=== PATIENT | male | born 1955 | race Caucasian/White ===

== ENCOUNTER 2017-03-10 14:37 | Emergency (ER) | payer MEDICARE ==
[2017-03-10 14:54] VITALS: RESP 18; TEMP 99.1
[2017-03-10] MEDS ORDERED: HYDROcodone/APAP 5-325MG 1 EACH TAB PO STA (14:55)
[2017-03-10] MEDS ORDERED: KETOROLAC 60 MG/2 ML VIAL IM STA (14:55)
--- NOTE | 2017-03-10 15:05 | ED ---
Lower Extremity Injury HPI - General Chief Complaint: Extremity Injury, Lower Stated Complaint: Knee/Ankle Pain Time Seen by Provider: 03/10/17 14:43 Source: patient, RN notes reviewed Mode of arrival: wheelchair Limitations: no limitations - History of Present Illness Initial Comments: patient is a 61-year-old male presents to the emergency room for evaluation of right ankle and knee pain. Patient states that about a week ago he twisted his right ankle. Patient states that he did not seek medical care afterwards. Patient states that he wrapped his right ankle and Wilfrido wrap and tried to keep weight off of it is much as possible. Patient states today he began developing right knee pain. Patient denies any specific injury to his knee. Patient denies falling on his knee when he injured his ankle last week. Patient denies taking anything for his symptoms. Patient denies numbness or tingling in his toes. Patient denies calf pain. Patient denies any swelling. Patient states it hurts to bend his knee and put weight on his right leg. - Related Data Previous Rx's Medication Instructions Recorded HYDROcodone/APAP 5-325MG [Gilbert 1 tab PO Q6HR PRN #12 tab 03/10/17 5-325] Allergies Allergy/AdvReac Type Severity Reaction Status Date / Time No Known Allergies Allergy Verified 03/10/17 15:58 Review of Systems ROS Statement: Those systems with pertinent positive or pertinent negative responses have been documented in the HPI. ROS Other: All systems not noted in ROS Statement are negative. Past Medical History Past Medical History: Hyperlipidemia, Hypertension History of Any Multi-Drug Resistant Organisms: None Reported Past Surgical History: Appendectomy, Tonsillectomy Past Psychological History: No Psychological Hx Reported Smoking Status: Never smoker Past Alcohol Use History: Daily Past Drug Use History: None Reported General Exam - General Exam Comments Initial Comments: sitting in exam room, no acute distress. Limitations: no limitations General appearance: alert, in no apparent distress Head exam: Present: atraumatic, normocephalic, normal inspection Eye exam: Present: normal appearance ENT exam: Present: normal exam Neck exam: Present: normal inspection Respiratory exam: Absent: respiratory distress Right Knee exam: Present: tenderness (tenderness on palpating over the anterior patella). Absent: full ROM (limited flexion and extension secondary to pain) Ankle exam: Present: full ROM, tenderness (lateral malleolus), swelling Neurovascular tendon exam: Present: no vascular compromise. Absent: pulse deficit (2+ dorsal pedal and posterior tibial pulses), abnormal cap refill ( capillary refill is less than 2 seconds) Back exam: Present: normal inspection Neurological exam: Present: alert, oriented X3, CN II-XII intact Psychiatric exam: Present: normal affect, normal mood Skin exam: Present: warm, dry, intact, normal color. Absent: rash Course Vital Signs 03/10/17 03/10/17 14:49 16:24 Temperature 99.1 F Pulse Rate 120 H 109 H Respiratory 18 18 Rate Blood Pressure 217/96 161/92 O2 Sat by Pulse 96 97 Oximetry Medical Decision Making - Medical Decision Making Patient is a 61-year-old male presents emergency room for evaluation of right ankle and knee pain. Right knee and ankle x-ray showed no acute findings. Patient advised follow-up with retail account specialist if symptoms are not improving in 7-10 days. Patient states he understands everything that was discussed with him. Return parameters discussed. - Radiology Data Radiology results: report reviewed, image reviewed Disposition Clinical Impression: Right ankle sprain, Knee pain, right Disposition: HOME SELF-CARE Condition: Good Instructions: Ankle Sprain (ED), Knee Pain (ED) Additional Instructions: Ice on and off for 10-15 minutes for the next 24-48 hours. Please follow-up with retail account specialist in 7-10 days if symptoms do not improve. If new symptoms develop or symptoms worsen, please return to the ER. Prescriptions: HYDROcodone/APAP 5-325MG [Gilbert 5-325] 1 tab PO Q6HR PRN #12 tab PRN Reason: Pain Referrals: Brandon Finley DO [Primary Care Provider] - 1-2 days Tavo Calderon DO [Doctor of Osteopathic Medicine] - 1-2 days Time of Disposition: 15:57
--- NOTE | 2017-03-10 15:37 | XR ---
EXAMINATION TYPE: XR ankle complete RT DATE OF EXAM: 03/10/2017 CLINICAL HISTORY: Right ankle pain after fall injury. TECHNIQUE: Frontal, lateral and oblique images of the right ankle are obtained. COMPARISON: None. FINDINGS: There is no acute fracture/dislocation evident in the right ankle. The ankle mortise appe ars within normal limits. Vascular calcification posterior soft tissue is seen. Mild diffuse subcutan eous edema is noted. Some ossification along course of distal Achilles tendon is present. IMPRESSION: There is no acute fracture or dislocation in the right ankle.
--- NOTE | 2017-03-10 15:40 | XR ---
EXAMINATION TYPE: XR knee complete RT DATE OF EXAM: 03/10/2017 COMPARISON: NONE HISTORY: Pain TECHNIQUE: Four views are submitted. FINDINGS: Joint spaces are preserved. Osseous structures are intact. No acute fracture seen. Diffuse osteope aakash noted. Bony density along the upper margin of the patella appears chronic. Vascular calcification s are seen. There does appear to be a small amount of fluid in the suprapatellar bursa. Mild arthriti c changes noted. Soft tissue calcification lateral to the right knee joint is nonspecific. IMPRESSION: 1. No acute fracture or dislocation. 2. Osteoarthritis. 3. Diffuse osteopenia
[2017-03-10 16:26] VITALS: BP 161/92; PULSE 109
== END 2017-03-10 16:24 | disposition home or self-care (01) ==
LOC: EC 14:37
DX: S93.401A Sprain of unspecified ligament of right ankle, initial encounter (principal); M25.561 Pain in right knee; X50.1XXA Overexertion from prolonged static or awkward postures, initial encounter
CPT/HCPCS: 99283; 96372; 73562; 73610; J1885